=== PATIENT | male | born 1955 | race Caucasian/White ===

== ENCOUNTER 2019-12-20 22:22 | Inpatient (IN) | payer OTHER ==
[~2019-12-20] VITALS: Ht 172.7 cm; Wt 79.9 kg
[2019-12-20 23:47] VITALS: BP 144/92
--- NOTE | 2019-12-21 00:05 | NUR ---
Patient admitted to room 527B under the care of Dr. Skelton with the diagnosis of psychosis. Patient arrived by EMS from [facility]. Patient currently resides in a home independently. Affidavits received from [facility] stating that they were dispatched to patient's residence on a report that this patient was "gardening naked". reports that upon arrival, patient was "seated in a lawn chair in the front yard and he was naked. There were piles of dirty clothing, boxed and canned food, rotted food, and other household items surrounding the front". Patient reported to that he had previously been diagnosed with schizoaffective disorder and he was previously treated at [facility]. However, when patient arrived to this unit, he denies any mental health history. States that he will not and has never taken any medications. Patient had also reported to that he has a therapist named Shelton Pino at [facility]. Patient having disorganized, tangential speech at this time. Flight of ideas, soft/rapid speech. Denies pain or discomfort. Denies SI/HI. Patient denies any history of alcohol, drug or nicotine use. Drug screen and alcohol screen negative from ED. Patient states he has no known drug allergies. Patient denies any recent weight loss. States that he eats a regular diet at home with a good appetite. Patient states that he "should" be wearing a full set of dentures. Appears to be endentulous but would not comply with oral assessment. Patient also states that he "should" be wearing eye glasses but has no vision impairment. Patient alert and oriented x3. States that he is currently at the hospital due to a "big misunderstanding" with his neighbor. Patient hyperactive, dancing about the halls and unit with towels and blankets wrapped around his head, waist and torso. Patient argumentative at times. States that he does not have any family or friends to contact. Patient stated that he has a primary care doctor at "[facility] [address]" but he hasn't been there in several years. Patient did report medical history of "heart disease" but was unable to ellaborate further. Patient did report that he was sad and then started talking about a man, train, stroke, laundry. Patient having difficulty focusing. Suspicious of surroundings. Patient later observed hugging and whispering with another peer. Needed re-direction several times on respecting personal boundaries. Admission orders obtained from AMANDA Ballesteros. AMANDA Sheikh notified of admission for hospitalist service. Patient did sign consents for treatment. Nurse placed new ID band for this hospital on patient's wrist and took off old ID band. Patient stating that he is allergic to the new band and wanted it to be pinned to his gown. Stating that his wrist now hurts due to the allergic reaction, wants to file a complaint. Attempted to explain to patient that the bands are exactly the same but have a different doctor and ID number on it. Patient continues to fixate on this. Patient remains restless and grandiose at this time.
[2019-12-21 07:34] VITALS: BP 114/81
[2019-12-21 11:11] LABS: HEMATOCRIT 39.1 % (42.0-52.0); HEMOGLOBIN 13.5 gm/dL (14.0-18.0); MCH 31.6 pg (26.0-34.0); MCHC 34.5 g/dL (28.0-37.0); MCV 91.8 fL (80.0-100.0); RBC 4.26 mil/uL (4.50-6.00); RDW 13.3 % (10.5-14.5); WBC 3.3 thou/uL (4.0-11.0)
[2019-12-21 11:32] LABS: ALBUMIN 3.6 g/dL (3.4-5.0); CALCIUM 8.9 mg/dL (8.5-10.1); CREATININE 1.2 mg/dL (0.7-1.3); MAGNESIUM 1.9 mg/dL (1.8-2.4); POTASSIUM 4.7 mmol/L (3.5-5.1); TOTAL BILIRUBIN 0.5 mg/dL (<0.1-1.0); TOTAL PROTEIN 6.4 g/dL (6.4-8.2)
[2019-12-21 11:55] LABS: TSH 1.094 uIU/mL (0.358-3.740)
--- NOTE | 2019-12-21 17:25 | NUR ---
PATIENT APPROACHED NURSES AND ADVISED HE HAD [employer] TABLET - COAT AND SILVER RING AT EMERGENCY ROOM AT [facility]. STAFF CALLED FACILITY AND THEY ADVISED THAT PATIENT'S BELONGINGS ARE IN EMERGENCY ROOM. STAFF AT ER CLAIMS HAS NO WAY OF TRANSPORTING - CAN BE CONTACTED AT [phone] AND ASK FOR ER.
--- NOTE | 2019-12-21 18:20 | NUR ---
Pt. says he has ring and [employer] tablet missing in transfer over here. He is to contact [facility] tomorrow to get those things transported over here from prior facility. He ambulates with ease, is A and O x 4.
[2019-12-21 20:02] VITALS: BP 155/93
--- NOTE | 2019-12-22 01:53 | NUR ---
PATIENT HAS BEEN UP BEFORE BED TRYING TO ADVOCATE FOR OTHER PATIENT'S BY GOING TO THE STAFF WITH PATIENT'S REQUEST FOR CARE OR TELLING STAFF WHAT DIFFERENT PATIENT'S ARE DOING. HE IS A/0X3. HE AMBULATES. HE DENIES PAIN AND BELIEVES HE'S HERE TO HELP OTHERS BECAUSE HE DOESN'T NEED HELP ACCORDING TO HIM. PT REFUSED HIS 2100 SEROQUEL AND STATES THAT HE CAN'T TAKE THAT MED AND THAT MEDS JUST MAKE HIM WORSE. HE WAS IN BED AND WANTING TO GO TO BED. HE STATES HE WANTS TO TALK WITH THE DOCTOR BEFORE TAKING ANY MEDS. HE GOT UP AROUND 0030 AND CAME TO NURSE STATION WANTING TO TALK WITH NURSE KOURTNEY BECAUSE HE THINKS SHE KNOWS SOMEONE HE KNOWS. HE WAS TOLD TO GO BACK TO BED AND HE COULD TALK TO KOURTNEY IN THE MORNING BECAUSE SHE WAS AWAY FROM THE NURSE STATION AT THE TIME. PATIENT WENT BACK TO BED AND IS SLEEPING AT THIS POINT. CONTINUING TO MONITOR. DENIES SI/HI/AVH.
[2019-12-22 07:32] VITALS: BP 140/97
--- NOTE | 2019-12-22 08:58 | EKG ---
[facility] [place] [address] ELECTROCARDIOGRAM REPORT Name: SARAHI LOBATO Room #: [facility] ADM IN M.R.#: [id number] Admission: 12/20/19 Attend Phys: Jacques Skelton DO Discharge: Date of : 59 Report #: [id number] THIS REPORT FOR: cc: MARTHA - Gladys family physician/PCP MARTHA - Gladys family physician/PCP Renzo Polanco MD ~ THIS REPORT FOR: //name// [facility] Test Date: 2019-12-21 Test Time: 08:47:00 Pat Name: SARAHI LOBATO Department: Room: [facility] Gender: M Cnc Mill Set Up Operator: Wyatt MCGUIRE : 1955 Requested By: Yoandy Ramirez Order Number: [id number] MD: Renzo Polanco Measurements Intervals [place] Rate: 65 P: 64 [place]: 157 QRS: 27 QRSD: 103 T: 52 QT: 406 QTc: 423 Interpretive Statements Sinus rhythm Atrial premature complex Low voltage, extremity leads No previous ECG available for comparison Electronically Signed On 12-22-2019 8:56:43 CDT by Renzo Polanco [email or web address] <ELECTRONICALLY SIGNED> By: Renzo Polanco MD 12/22/19 0856 Renzo Polanco MD /EPI
--- NOTE | 2019-12-22 17:22 | NUR ---
ASSUMED CARE AT 0700 THIS MORNING. PTAman ELIZALDE NOT SET STILL TO EAT BREAKFAST. HE CONTINUALLY WANTS TO TAKE CARE OF OTHER PATIENTS. HE WOULD NOT SIT DOWN TO EAT. STAFF WAITED FOR HIM TO FINISH BREAKFAST, BUT HE DID NOT. STAFF EVENTUALLY PICKED UP HIS TRAY. HE CAME TO THIS NURSE STATED THAT I NEED TO INFORM THE FABRIC WORKER FITTER'S TO NOT CHEF ASSISTANT HIS TRAY BEFORE HE TOLD THEM THEY COULD. HE CALLED THIS RN INTO HIS ROOM AND SHOWED STAFF THAT A BIRD HAD LAYED EGGS IN FLOWER POTS ON THE ROOF. HE WAS CONCERNED THE BIRD COULD NOT ADEQUATELY TAKING CARE OF THE EGGS.
[2019-12-22 19:20] VITALS: BP 146/88
--- NOTE | 2019-12-23 00:24 | NUR ---
Assumed care of patient this pm shift. Patient in good spirits. Patient talks about connecting with the energies of the earth. Patient showed how palms are read. Patient calm and cooperative. Patient refused night time medications. Patient ambulatory. Patient denies pain. Patient denies hi/si. Patient asks if there are any positions available. Patients assessment shows clear breath sounds, active bowel sounds, and s1 s2 heard with auscultation. Patient is alert and oriented to person and time as well as place. Patient is having a hard time sleeping this evening. We will continue to monitor.
[2019-12-23 07:30] VITALS: BP 114/73
--- NOTE | 2019-12-23 13:59 | NUR ---
JOSEPH completed a SLUMS with patient. He scored 28/30. JOSEPH filed this in pt's chart. SW team will continue to follow pt during his stay on this unit.
--- NOTE | 2019-12-23 14:31 | NUR ---
PATIENT CARE ASSUMED T 0700 AM - PATIENT IN ROOM WHEN BREAKFAST SERVICED. ENTERED ROOM AND PATIENT MAKING ODD MOVEMENTS IN BED WHILE SUN SHINED ON HIM. CLAIMS RITUAL THAT AIDS HIM WITH FOCUS AND STRENGTH AND WOULD NOT UNDERSTAND. LATER FOUND IN HIS ROOM NAKED BY HOSPITALIST. CLAIMS WAS EXERCISING. PATIENT NEEDS REDIRECTION TO STAY FULLY CLOTHED. ALSO ADVISED NOT TO TOUCH OTHER PATIENTS SINCE HE PERFORMS SAME STRANGE RITUALS ON PEERS. REFUSING ANY MEDICATIONS - MISSED BREAKFAST. PATIENT HAD SLUMS EXAMINED PERFORMED THIS AFTERNOON. SCRATCHED LEFT SIDE OF CHEST - OVER CLAVICLE. CLAIMS YOGA HIGHER UP CONVEYED HIM TO DO SO. EXPLANATION TO BIZARRE TO COMPREHEND.
[2019-12-23 19:49] VITALS: BP 142/79
[2019-12-23 19:51] VITALS: BP 111/75
[2019-12-23 20:00] VITALS: BP 111/75
--- NOTE | 2019-12-24 04:55 | NUR ---
12-23-19 CARE TRANSFERED AT 1914; 1944 pt sitting on floor with eyes open. Pt AAOx2; skin w/d. Noted lated during medication admin pt sitting on floor with towel on head and moving hands in a bizarre way, pt reported this is a ritual to assist him with center his self. Pt had zero difficulties swallowing medication. Pt denies any pain or SI/SH/HI at this time. Please refer to nursing interventions for more information. Zero acute distress noted.
[2019-12-24 09:22] VITALS: BP 111/75
--- NOTE | 2019-12-24 09:30 | NUR ---
ASSUMED CARE AT 0700 THIS MORNING. PT. UP AND ON THE UNIT FOR BREAKFAST. HE CONTINUES TO MAKE VERY BIZZARE HAND MOTIONS CONTINUALLY THROUGHOUT BREAKFAST. 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 HE IS REDIRECTABLE FOR SHORT PERIODS OF TIME THEN RETURNS TO HIS "MANAGER VISUAL" ROLE.
[2019-12-24 19:35] VITALS: BP 144/88
[2019-12-24 20:20] VITALS: BP 144/88
--- NOTE | 2019-12-25 03:19 | NUR ---
12-24-19 TRANSFER CARE 1914. At start of shift noted pt in day room with doing bizarre movements. 2019 Pt cooperative and reposition from standing to sitting for assessment. Pt denies any pain and SI/SH/HI. During medication administration, pt became aggressive and grabbed water glass and gargled then spit water back in to cup, then took pills and plastic medication cup into mouth, pt spit medication cup back out, then reported he had to go to bathroom. Unsure if pt swallowed pills or cheeked. Pt continued to become more agitated and took off all his close and had a sheet loosly wrapped around his neck in a scarf fashion. When asked to please put pants on, pt reported he was doing his evening baptist routine; pt elevated his aggression and [address] Skelton and received orders are follows. Haldol 5 mg, 1 mg Ativan, 25 mg Bendryl, IM x1 stat (TORB DR GRAJEDA / BRETT RN noted 12-24-190 CW). Approximately 2199 security team arrived for stand by assist and IM shot delivered into left deltoid, security team did assist in keeping pt arms from swing around and pt reported again he is just doing his baptist routine. All bed linens removed from room. 230 Pt was calm and more cooperative and a sheet was given, RR 16 even and non-labored on RA; 0100 Pt right side lying with eyes closed, RR 16 even and non-labored on RA; 0300 Pt right side lying with eyes closed, arms wrapped around self and legs drawn up, noted goosebumps on skin, covered pt with clean fresh blanket. Zero acute distress noted.
[2019-12-25 07:30] VITALS: BP 121/86
--- NOTE | 2019-12-25 11:49 | NUR ---
Alert and orientated X4. States he wants to keep praying and exercising. Denies SI/HI. Interacting with staff and peers appropriately but does need reminders to not do yoga poses in day room. Breath sounds clear t/o. Reg HR ausculatated. Color pink with brisk capillary refill and palpable peripheral pulses. Independent with voiding. Active bowel sounds over soft, flat abdomen. Regular, steady gait. Requesting to shave after lunch.
--- NOTE | 2019-12-25 12:13 | NUR ---
JOSEPH contacted [facility] and scheduled an appt for pt with [facility] for January 06 @[address] Cordero. They will call the number pt gave of [phone]; this belongs to his sister in law. JOSEPH contacted Mr. Ernandez for assistance with pt. Mr. Ernandez says he cannot help pt because he is non-compliant with meds and does not have a hx of substance abuse. Due to COVID-19 his options are limited. SW team will continue to follow pt during his stay on this unit.
[2019-12-25 19:36] VITALS: BP 139/95
--- NOTE | 2019-12-26 01:18 | NUR ---
Assumed care of patient this pm shift. Patient is in good spirits. Patient denies pain. Patient denies hi/si. Patient occasionally sits in the hallway doing some kind of yoga. Patient refused medications this evening and requested the chemical makeup and atomic number which rn was not able to provide at this time. Patient is ambulatory and very intrusive. Patient gets in the business of others without prompting. Patient states that his urine and bowel needs to be checked immediately by the labratory but does not state which tests are needed. Patients assessment shows clear breath sounds, active bowel sounds, and s1 s2 heard with auscultation. We will continue to monitor.
[2019-12-26 08:35] VITALS: BP 118/94
[2019-12-26] MEDS ORDERED: QUETIAPINE FUM150 MG PO (09:13)
[2019-12-26 11:03] VITALS: BP 118/94
--- NOTE | 2019-12-26 11:15 | NUR ---
1015 Pt. lying in room appears to sleep with bottom sheet off bed and looped loosely around his neck 4-5 times. Awakened easily. Denies any attempt to harm himself after being asked several times. Expressing frustration about being asked about SI multiple times. Denies intent to harm himself or others. Also had top sheet on top of arm chair with each corner tied to chair leg. Alert and orientated X 4. Affect flat with little interaction but answering questions. Old scratches over chest, scabbed over. Breath sounds clear t/o. Reg HR auscultated. Color pink with brisk capillary refill and palpable peripheral pulses. No edema noted. Independent with voiding. Active bowel sounds over soft, flat abdomen. States he talked to doctor this AM and he is ready to go home. 1115 Attempted to give discharge instructions but he refused to listen repeatedly getting out of WC. Asked what "NOS" meant r/t psychosis. Prescription given, states he is not on any medication. Concerned about silver candle dukes in belongings. Refused to sign discharge instructions stating that was his right by law. Asked again about SI and he adamantly refused. When asked what he would do if he did feel like harming himself he stated that he would exercise. When asked if he had hotline number to call he was ambivalent. JOSEPH Maharaj stated she had given him the number. Carol Ann escorted him in WC to ER entrance and placed him in taxi.
--- NOTE | 2019-12-28 12:19 | D ---
[facility] [place] [address] [place] [address] DISCHARGE SUMMARY Name: SARAHI LOBATO Room #: 527B-B DIS IN M.R.#: [id number] Admission: 12/20/19 Attend Phys: Jacques Skelton DO Discharge: 12/26/19 Date of : 59 Report #: [id number] THIS REPORT FOR: cc: MARTHA - No family physician/PCP FAM - No family physician/PCP Jacques Skelton DO ~ THIS REPORT FOR: //name// CC: Jacques THOMAS physician/PCP DATE OF SERVICE: 12/26/2019 INPATIENT PSYCHIATRIC DISCHARGE SUMMARY ATTENDING PHYSICIAN: Jacques Skelton DO. GUARD CHIEF AT THE TIME OF DISCHARGE: Ada Sam MD DISCHARGE DIAGNOSES: Schizophrenia, still decompensated due to patient opposition to treatment, poor compliance. Medical comorbidities include largely none found after hospitalist exam. DISCHARGE PLAN: The patient is discharging to, he states, a friend's place. We are taxing him to [facility] where his belongings are. Regular diet. Activity level as tolerated. No alcohol, no illicit drugs. Only prescription I am giving is 30-day supply of Seroquel XR 300 mg. The patient states he will not take this, however. It should be noted during hospitalization, the patient was offered conversion of an antipsychotic regimen to a long-acting injection, which he declined. The patient should avoid alcohol or illicit drugs. States he is a nonsmoker currently. REASON FOR ADMISSION: A 64-year-old male transferred from [facility] for bizarre behavior on 12/20/2019. Apparently, the patient was outside his house, found there by police, naked, gardening. He claimed it was too hot and was trying to cool down. Also, reported a history of schizoaffective disorder, had been receiving services at [facility]. HOSPITAL COURSE: The patient was admitted to the Geriatric Psychiatry Unit. Records were obtained from [facility]. They included clinic notes from the [facility] clinic from 05/2019 through 09/2019. By the end of 06/2019, the patient had discontinued routinely taking Navane, had not tolerated a cross titration to Risperdal either. At that time, the patient's providers and director of casework were concerned about him and their ongoing monthly or so clinic visits reflected that. During hospitalization, the patient would have bizarre stereotypy [facility] [address] [place] [address] DISCHARGE SUMMARY Name: CHERYLESARAHI JULIENNE Room #: 527B-B DIS IN M.R.#: [id number] Admission: 12/20/19 Attend Phys: Jacques Skelton DO Discharge: 12/26/19 Date of : 59 Report #: [id number] movements, moving his arms around at times, performing yoga like maneuvers, being able to stand on one leg, etc. He was typically intrusive in other patient's affairs, had to be redirected multiple times, was not assaultive, not injurious. On the day of discharge, there was an incident of some concern where he had tied the sheet as a chair and appeared to maybe put it around his neck. When I questioned him about this, he reported this was a move he did in Judo. From the patient's records, he does not have significant history of suicidality, I can recall. He is future oriented and I do not believe this was an actual attempt against his life. However, I did review the incident with the patient and with the nurse witnessed. On the day of discharge, the patient was in stable condition. The patient was refusing most aftercare offered. He was advised to go to the [facility] or [facility]. PHYSICAL EXAMINATION: VITAL SIGNS: Temperature 36.6, pulse 72, respirations 18, BP 118/94, O2 sat 97%. MUSCULOSKELETAL: Abnormal movements that are not indicative of tardive dyskinesia. Normal gait and station. MENTAL STATUS EXAMINATION: This is a well-developed, appropriate ____ male with kearns hair, unkempt at times. Attention fair. Concentration fair. Speech is normal in rate, volume and tone. Thought Process: Linear and goal directed. Thought Content: Focused on discharge, getting a job, doing things such as this. Mood and affect were congruent, generally euthymic. Denied SI or HI. Denied hopelessness, helplessness. No auditory, visual, or tactile hallucinations at the time of discharge. Insight impaired. Judgment limited. Fund of knowledge above average range. Prognosis for this patient is guarded to poor due to noncompliance with medication regimen, failure to wanting to engage in [facility] services. The patient was warned of the high risk of dementia with continued noncompliance with antipsychotic medications. However, given all this, the patient did not meet involuntary criteria and was not making therapy to progress on the unit. ADDENDUM Remainder of laboratory work done in the house, much of the other labs was done at [facility]. Hematology for this admission on 12/21/2019, H and H 13.5 and 39.1, slightly low. White cell count 3.3, again slightly low. Platelet count normal 159,000. Chemistry: Sodium 143, potassium 4.7, chloride 108, bicarbonate 27, BUN 28, creatinine 1.2, estimated GFR is 61, glucose 95, calcium 8.9, magnesium 1.9, total bilirubin 0.5, AST 27, ALT 21, alkaline phosphatase 73, total protein 6.4, albumin 3.6. B12 low at 396, treatment [facility] [address] [place] [address] DISCHARGE SUMMARY Name: CHERYLESARAHI Room #: 527B-B DIS IN M.R.#: [id number] Admission: 12/20/19 Attend Phys: Jacques Skelton DO Discharge: 12/26/19 Date of : 59 Report #: [id number] deferred on that. TSH normal at 1.094. No other laboratories obtained in this admission and weight at time of discharge is 79.878 kilos. <ELECTRONICALLY SIGNED> By: Jacques Skelton DO 12/28/19 1219 1905 1936 Jacques Skelton DO /nt
== END 2019-12-26 11:13 | disposition home or self-care (01) | DRG 885 ==
LOC: SBH
PROVIDERS: Internal Medicine; ADMIT Psychiatry & Neurology Psychiatry
DX: F25.9 Schizoaffective disorder, unspecified (principal); Z91.14 Patient's other noncompliance with medication regimen
CPT/HCPCS: 10880

== ENCOUNTER 2019-12-29 03:45 | Inpatient (IN) | payer OTHER ==
[~2019-12-29] VITALS: Ht 185.4 cm; Wt 81.2 kg
[~2019-12-29 03:45] MED LIST: QUETIAPINE FUM150 MG PO
[2019-12-29 03:47] VITALS: BP 149/90
[2019-12-29 04:17] LABS: ABSOLUTE NEUTROPHILS 3.3 thou/uL (1.4-8.2); BASOPHILS 1.1 % (0.0-2.0); EOSINOPHILS 2.9 % (0.0-3.0); HEMATOCRIT 41.3 % (42.0-52.0); HEMOGLOBIN 14.2 gm/dL (14.0-18.0); LYMPHOCYTES 26.3 % (24.0-44.0); MCH 31.5 pg (26.0-34.0); MCHC 34.4 g/dL (28.0-37.0); MCV 91.6 fL (80.0-100.0); MONOCYTES 10.5 % (1.0-8.0); PLATELET COUNT 194 thou/uL (150-400); POLYS 59.2 % (36.0-66.0); RBC 4.51 mil/uL (4.50-6.00); RDW 13.1 % (10.5-14.5); WBC 5.5 thou/uL (4.0-11.0)
[2019-12-29 04:27] LABS: CALCIUM 9.4 mg/dL (8.5-10.1); CREATININE 1.1 mg/dL (0.7-1.3); POTASSIUM 3.7 mmol/L (3.5-5.1)
[2019-12-29 04:33] LABS: ALBUMIN 4.4 g/dL (3.4-5.0); TOTAL BILIRUBIN 0.8 mg/dL (<0.1-1.0); TOTAL PROTEIN 7.6 g/dL (6.4-8.2)
[2019-12-29 04:47] LABS: URINE BILIRUBIN NEGATIVE (Negative); URINE BLOOD TRACE (Negative); URINE CLARITY CLEAR; URINE COLOR YELLOW; URINE GLUCOSE-RANDOM* NEGATIVE (Negative); URINE KETONES TRACE (Negative); URINE LEUKOCYTES-REFLEX NEGATIVE (Negative); URINE NITRITE-REFLEX NEGATIVE (Negative); URINE PROTEIN (DIPSTICK) NEGATIVE (Negative); URINE SPECIFIC GRAVITY 1.025 (1.005-1.035); URINE UROBILINOGEN 0.2 E.U./dl (0.2-1.0)
[2019-12-29 04:58] LABS: AMP/METHAMP Negative (Negative); BARBITURATES Negative (Negative); BENZODIAZEPINES Negative (Negative); COCAINE Negative (Negative); METHADONE Negative (Negative); OPIATES Negative (Negative); PCP Negative (Negative)
--- NOTE | 2019-12-29 05:17 | NUR ---
Pt changed to room 7 due to pt not sitting still, walking around in room and taking supplies out of place. Playing with water,getting napkins wet. Security still next to patient's room. Charge nurse Harriet and this nurse went through his belongings to discard any weapons and put belongings in bags and in a cabinet outside his room
--- NOTE | 2019-12-29 08:44 | EKG ---
[facility] [place] [address] ELECTROCARDIOGRAM REPORT Name: SARAHI LOBATO Room #: 170-7 ADM IN M.R.#: [id number] Admission: 12/29/19 Attend Phys: Jacques Skelton DO Discharge: Date of : 59 Report #: [id number] THIS REPORT FOR: cc: MARTHA - Gladys family physician/PCP MARTHA - No family physician/PCP Benny Elder MD [facility] THIS REPORT FOR: //name// [facility] ED Test Date: 2019-12-29 Test Time: 04:02:40 Pat Name: SARAHI LOBATO Department: Room: [facility] Gender: M Account Liaison: STOLEDAndres : 1955 Requested By: Sam Sy Order Number: [id number] MD: Benny Elder Measurements Intervals [place] Rate: 69 P: 50 [place]: 137 QRS: 8 QRSD: 118 T: 44 QT: 467 QTc: 501 Interpretive Statements Sinus rhythm ventricular premature complexes Compared to ECG 12/21/2019 08:47:00 Ventricular premature complex(es) now present Electronically Signed On 12-29-2019 8:42:40 CDT by Benny Elder [email or web address] <ELECTRONICALLY SIGNED> By: Benny Elder MD, [facility] 12/29/19 0842 1 1 Benny Elder MD, [facility] /EPI
[2019-12-29 09:15] VITALS: BP 169/82
[2019-12-29 09:51] VITALS: BP 129/76
--- NOTE | 2019-12-29 11:16 | NUR ---
1000 NEW ADMIT HERE TRANSFERRED FROM ER, PATIENT IS HOMELESS AND WAS JUST DISCHARGED ON 12/26/19 FROM [facility]. PATIENT HAS HAD SOME BIZZARE BEHAVIORS SEEING CHILDREN TYIED UP AT HOME. PATIENT IN THE ER WAS ASKING TO GIVE HIM BLOOD TO DRINK FROM LAB TUBES. MAKING GLUTURAL SOUNDS THREATENING NURSES AND STAFF IN ER. PATIENT HAS NOT BEEN MED COMPLIANT AND WAS GIVEN HALDOL 5 MG IN ER TO HELP PATIENT CALM DOWN. UPON ARRIVING ON UNIT PATIENT SOMEWHAT SEDATED. HE IS COOPERATIVE AND RESTING QUIETLY IN ROOM WILL CONTINUE TO MONITOR PATIENT FOR BEHAVIORS AND SAFETY.
[2019-12-29 19:34] VITALS: BP 132/75
--- NOTE | 2019-12-29 22:25 | NUR ---
Care assumed of patient at 1915: Patient resting in bed at start of shift. Easily aroused. Hyperverbal, rambling, disorganized speech. Alert and oriented x4. Denies pain or discomfort. Denies SI/HI/AH/VH. However, patient pointing spontaneously to the purvis, window and bed. Unable to differentiate what patient was talking about. Patient dirty in hospital clothing. Offered to assist patient with showering, patient stated he just took a bath. Patient impulsive, disrespecting personal boundaries of staff and peers. Patient has linens wrapped around waist and arms as if it were a dress. Patient declined HS snack. No medication prescribed this evening. Patient up and pacing the halls x2 since start of shift but has been fairly calm compared to behavior displayed in the ED this AM.
[2019-12-30 08:00] VITALS: BP 121/85
--- NOTE | 2019-12-30 08:49 | NUR ---
PT IN DINING ROOM FINISHED BREAKFAST. PT TOOK MED WITHOUT ANY ISSUSES. PT NOT HAVING ANY BIZZARE BEHAVIOR AT THIS TIME.
--- NOTE | 2019-12-30 10:00 | NUR ---
PT IN BATHROOM AND COMPLAINED OF HAVING LOOSE STOOL. HE SAID AFTER BREAKFAST HE HAD STOOL.
--- NOTE | 2019-12-30 17:59 | NUR ---
PT STATED THE ONLY STOOL WAS AN HOUR AFTER BREAKFAST. PT REQUESTING TO HAVE A LOMOTIL AT THIS TIME AFTER DINNER. PT TOOK HALDOL MEDICATION WITHOUT ANY ISSUES. STILL NO BIZZARE BEHAVIOR AT THIS TIME.
--- NOTE | 2019-12-30 18:36 | NUR ---
ADM IMMODIUM 15ML PO PER PT REQUEST.
[2019-12-30 19:47] VITALS: BP 124/81
--- NOTE | 2019-12-30 22:12 | H ---
[facility] [place] [address] HISTORY AND PHYSICAL Name: SARAIH LOBATO Room #: 526A-A ADM IN M.R.#: [id number] Admission: 12/29/19 Attend Phys: Jacques Skelton DO Discharge: Date of : 59 Report #: [id number] THIS REPORT FOR: cc: MARTHA - No family physician/PCP FAM - No family physician/PCP Jacques Skelton DO ~ CC: Jacques THOMAS physician/PCP DATE OF SERVICE: 12/29/2019 INPATIENT PSYCHIATRIC EVALUATION. ATTENDING PHYSICIAN: Jacques Skelton DO. REFERRAL SPECIALIST: Matt Moore MD REASON FOR ADMISSION: Psychosis. CHIEF COMPLAINT: Unspecified. HISTORY OF PRESENT ILLNESS: This is a 64-year-old male apparently single, known to me from recent previous admission in December. His date of discharge unfortunately was 12/26/2019, so he barely lasted outside of the hospital a full weekend. The patient had been discharged at his request to [facility] to get belongings. Information is rather scant on what brought him back to the hospital but apparently, he was brought by ambulance. The best documentation I have from 3:47 a.m. this morning, authorities were called to the scene by patient, picked up at 11,000 [address], found in chair and brought in by family to take care of rituals and cleanout animal carcasses in-house. When asked if he was suicidal or homicidal, patient states "yes". He was told to go in-house and clean out the people and carcasses and animals. "He was told how to draw blood and states he needs to mix it and drink it..." This sort of bizarre ideations was typical of his previous admission. There were other oddities. The patient was found to be extremely dirty, paranoid, impulsive. He took off all vital signs devices in the late morning in the ER, got naked, given water to produce urine. The patient reports that it is like giving . The patient kneeled in bed and make guttural noises until he was able to produce urine. He put hospital gown back on and was walking around inside room, making guttural noises, security at the patient's door. The patient was up in room and sink water running, cabinets are saturated. The patient escorted to room, garage door down. The patient received 20 mg of Geodon last night and 5 mg of Haldol, 2 mg of Ativan this morning. At around 7:15, he was pacing, staining the door and would not sit back in bed and was [address] [address] HISTORY AND PHYSICAL Name: CHERYLESARAHI JULIENNE Room #: 526A-A [facility] IN M.R.#: [id number] Admission: 12/29/19 Attend Phys: Jacques Skelton DO Discharge: Date of : 59 Report #: [id number] making aggressive statements to the sitter. Security arrived and he was given a second injection. He also stated in the ER, he was brought there to remove the corpses and stuff. He states that he had some nightmares that their children tied up with duct tape. Denies alcohol and drug use. No fevers. Reported he just performed an exorcism, apparently refused to allow EMS to call the ED ahead in time en route. PAST MEDICAL HISTORY: Heart disease. Denies further. MEDICATIONS: He is on 300 mg of Seroquel XR but I do not believe he was taking it. ALLERGIES: PENICILLIN, SULFA. Weight 61.24 kilos. LABORATORY STUDIES: Sodium 145, potassium 3.7, chloride 108, bicarbonate 25, anion gap 12, BUN 33, creatinine 1.1, estimated GFR 68, glucose 126, calcium 9.4. Total bilirubin 0.8, AST 80, ALT 52, alkaline phosphatase 78, total protein 7.6, albumin 4.4. White count 5.5, hemoglobin 14.2, hematocrit 41.3, platelet count 194. Urine drug screen was negative. Trace ketones, trace blood. It looks like EKG was performed. QTC 501, QT 467, NV interval 137, rate 69, sinus rhythm, ventricular premature complexes were now present read by Dr. Elder. PHYSICAL EXAMINATION: VITAL SIGNS: Today, temperature 36.2, pulse 88, respirations 24, BP 129/76, O2 sat 99%. MUSCULOSKELETAL: Normal gait and station. MENTAL STATUS EXAMINATION: This is a well-developed, disheveled male appearing of stated age. Attention limited. Concentration limited. Speech is normal rate. Thought process is linear and goal directed. Thought content focused on no specific thing. The patient is a grossly poor historian. No psychomotor agitation, some psychomotor retardation when I saw him recently, received IM injection. Denied SI or HI. Denied hopelessness, helplessness. Memory not formally tested. Denied auditory, visual, or tactile hallucinations. Insight limited. Judgment limited. Fund of knowledge rather no greater than average. FORMULATION: A 64-year-old male recently discharged on Sunday of last week from [facility], now readmitted for pronounced psychosis. The patient will be a 96-hour involuntary admission. DIAGNOSIS: Schizophrenia. [facility] [address] [place] [address] HISTORY AND PHYSICAL Name: SARAHI LOBATO Room #: 526A-A ADM IN ..#: [id number] Admission: 12/29/19 Attend Phys: Jacques Skelton DO Discharge: Date of : 59 Report #: [id number] SECONDARY DIAGNOSIS: Based on physical from last time. Also laboratories were obtained last admission included TSH 1.094. Vitamin B12 level 396. Magnesium was 1.9 on 12/21/2019. No other medical problems. PLAN: Evaluate, stabilize, obtain collateral. Start Haldol 5 mg p.o. twice per day oral with IM backup 5 mg if refuses. We will need to explore further his family living situation than we did last time. I believe, he has a brother or sister still living, not sure their awareness of his situation. Time spent on interview, discussion with Emergency Room staff, review of records, coordination of care is approximately 60 minutes. PROTECTIVE FACTORS: Relatively young age. WEAKNESSES: Poor compliance, persistent mental illness. <ELECTRONICALLY SIGNED> By: Jacques Skelton DO 12/30/19 2212 [id number] Jacques Skelton DO /nt
--- NOTE | 2019-12-31 00:14 | NUR ---
Assumed care of patient this pm shift. Patient in good spirits, calm and cooperative. Patient denies hi/si. Patient denies pain. Patient was curious why he is now on haldol instead of seroquel. RN directed patient to talk with MD to better understand the medication change. Patient is ambulatory, continent of bowel and bladder. Patient takes medications whole. Patients assessment shows clear breath sounds, active bowel sounds, and s1 s2 heard with auscultation. We will continue to monitor.
[2019-12-31 07:50] VITALS: BP 136/92
[2019-12-31 08:42] VITALS: BP 136/92
--- NOTE | 2019-12-31 08:58 | NUR ---
ASSUMED CARE AT 0700 THIS MORNING. PT. WALKING AROUND WITH A BLANKET AROUND HIS SHOULDERS. HE VERBALIZED CONCERN ABOUT WHAT MAY OF CAUSED HIS DIARRHEA YESTERDAY. HE VERBALIZED HE THOUGHT IT MAY BE THE HALDOL. I INFORMED HIM I DID NOT THINK THAT WAS CORRECT, BUT I WOULD INFORM THE DRAman OF THIS INFORMATION AND CONCERN. HE CONTINUES TO MAKE STRANGE GESTURES AND VERBAL COMMENTS. SHE DID TAKE HIS MEDICATIONS WITHOUT PROBLEMS NOTED.
--- NOTE | 2019-12-31 12:37 | NUR ---
Dr. Skeltno and JOSEPH met with pt in the doctor's office, and contacted pt's brother and sister in law Bob and Angelica. Angelica was unaware of much of his actions due to her not being able to contact pt when she calls him; she only hears from him when he is in need. She said that when she picked pt up after his last d/c from [facility] he was barefoot and walking a long distance. She was told by pt that he was sent without shoes. JOSEPH explained that was not true and that she sent pt by [employer] to [facility] because he insisted on getting his belongings. She said that she picked him up much later than that. She corroborated that pt does live in [facility]; however, Bob said his friend is pt's landlord and does not want pt moving back until he is medicated. Dr. Skelton explained that pt needs placement for at least 6 months to consistently become medicated. Pt did not like the conversation about guardianship so he chose to leave the office. Bob said that he is very much interested in obtaining guardianship and would like to start on that right away. JOSEPH explained how she could assist in this process. He gave the email of [email or web address] to correspond with him about guardianship. JOSEPH sent an email to César so that he and his senior business architect can have her contact information. JOSEPH team will continue to follow pt during her stay on this unit.
--- NOTE | 2019-12-31 12:57 | EKG ---
[facility] [place] [address] ELECTROCARDIOGRAM REPORT Name: SARAHI LOBATO Room #: 52-A ADM IN M.R.#: [id number] Admission: 12/29/19 Attend Phys: Jacques Skelton DO Discharge: Date of : 59 Report #: [id number] THIS REPORT FOR: cc: FAM - No family physician/PCP FAM - No family physician/PCP Renzo Polanco MD ~ THIS REPORT FOR: //name// [facility] Test Date: 2019-12-31 Test Time: 09:28:18 Pat Name: SARAHI LOBATO Department: Room: 52 A Gender: M Post Graduate Internship: ANTHONY : 1955 Requested By: Jacques Skelton Order Number: [id number] MD: Renzo Polanco Measurements Intervals Valmy Rate: 56 P: 29 WA: 169 QRS: 21 QRSD: 94 T: 46 QT: 411 QTc: 397 Interpretive Statements Sinus rhythm Atrial premature complex Low voltage, extremity leads Consider RVH or posterior infarct Compared to ECG 12/29/2019 04:02:40 Atrial premature complex(es) now present Low QRS voltage now present Myocardial infarct finding now present Ventricular premature complex(es) no longer present Electronically Signed On 12-31-2019 12:55:15 CDT by Renzo Polanco [email or web address] <ELECTRONICALLY SIGNED> By: Renzo Polanco MD 12/31/19 1255 7 7 Renzo Polanco MD /EPI
[2019-12-31 19:39] VITALS: BP 122/80
[2019-12-31 20:37] VITALS: BP 122/80
--- NOTE | 2020-01-01 01:46 | NUR ---
Assumed care of patient this pm shift. Patient in good spirits sitting in the mileu. Patients affect is flat. Patient takes medications whole. Patient ambulates without assistance. Patient requested a sleeping pill. Patient calm and cooperative with rn. Patients assessment shows clear breath sounds, active bowel sounds, and s1 s2 heard with auscultation. Patient is continent of bowel and bladder. Patient did not display any aggressive behaviors. Patient denies pain. Patient denies hi/si. Patient did not state any goals for this evening. We will continue to monitor.
[2020-01-01 07:38] VITALS: BP 127/85
--- NOTE | 2020-01-01 15:15 | NUR ---
SPEECH MUMBLED AND DIFFICULT TO UMDERSTAND THIS AM DURING 1. VISIBLE IN DAYRROM WITH PEERS AND DOES APPEAR TO BE SOCIAL AND INTERACTIVE.RELUCTANT TO TAKLE AM MEDICATION STATING DOSE WAS "TOO HIGH-I DIDN'T TAKE THAT MUCH YESTERDAY" DID COMPLY AFTER VERIFYING DOSE INCREASE FROM 12/30. GAIT STEADY WITHOUT ASSISTIVE DEVICES. CONVERSATION RAMBLING/CIRCUMSTANTIAL-NO NOTED OR REPORTED A/V HALLUCINATIONS OR OVERT DELUSIONAL STATEMENTS DURING 1. DOES REPORT "ALL OVER" PAIN RATED A 6 ON 1-10 SCALE . TYLENOL 650MG GIVEN PO PRN AT 1045 WITH VERBALIZED DECREASE PAIN TO 3 OR 4. APPETITE GOOD. SOME OPPOSITIONAL TYPE BEHAVIORS RE UNIT RULES WHEN ASKED TO NOT ENTER DAYROOM WITHOUT YELLOW SLIPPERS STATES "IF YOU CALL SOMEONE TO TRIM MY NAILS I WILL WEAR THEM"
[2020-01-01 19:42] VITALS: BP 148/98
--- NOTE | 2020-01-02 03:13 | NUR ---
Pt. alert and oriented throughout the shift. He did rest quietly during the night when checked on during frequent rounds. Cooperative with cares. Up ad coral in his room and steady on his feet. Offers no c/o pain.
[2020-01-02 07:00] VITALS: BP 136/86
--- NOTE | 2020-01-02 16:35 | NUR ---
COOPERATIVE AND PLEASANT-SIGNED VOLANTARY ADMIT FORM. DOES REPORT LEFT SHOULDER PAIN RATED A 7 ON 1-10 SCALE-TYLEONOL 650MG PO PRN WITH VERBALIZED FAIR RELIEF-PAIN DECREASED TO 5-NEW ORDER FOR VOLTERAN GEL-APPLIED TOPICALLY TO LEFT SHOULDER AT APPROX 1230. GAIT STEADY. NIKKI SI/SH/.HI. CONVERSATION AT TIMES RAMBLING/CIRCUMSTANTIAL BUT NO ACUTE PSYCHOSIS-A/V HALLUCINATIONS REPORTED OR NOTED DURING 1;1
[2020-01-02 19:51] VITALS: BP 131/91
--- NOTE | 2020-01-02 21:38 | NUR ---
Care of patient assumed at 1915. Patient is in the day room talking with peers. Pleasant and cooperative with assessment. Denies SI/HI as well as hallucinations. Loose associations. Somewhat grandiose in content. A/O x 4. Endorses left shoulder pain rating it a 12 on 0-10 scale, though he exhibits no overt signs of pain. In describing pain, he indicates that it is along the inner edge of left scapula, probably luscle related. Accepts APAP with HS meds. When reassessed, rates pain at 6/10. Lies down shortly after getting meds.
[2020-01-03 09:19] VITALS: BP 111/73
--- NOTE | 2020-01-03 10:00 | NUR ---
ssumed care 0700. Ate breakfast, med compliant. Denies SI/HI/AH/VH. Mentioned how he got tothis unit: While in ER he reports staff would not clean nd bandage cut on foot so he got up to area sink, lifted foot up and proceeded cleaning it in the sink then saw adjacent antibiotic ointment and bandage and put them on foot. He was taken to some quiet area and was transferred to [facility]. He does not comprehend the inappropriateness of his actions. Conversant with peers.
[2020-01-03 19:17] VITALS: BP 124/89
--- NOTE | 2020-01-04 03:53 | NUR ---
01-03-20 CARE TRANSFERED AT 1915; 1945 PT AAOX2 STANDING IN DAY ROOM, CALM AND COOPERATIVE DURING NURSING ASSESMENT. PT REPORTED HAVING A BM TODAY. PT DENIES SI/SH/HI/VAH. PT REPORTS SHOULDER PAIN IN FIRST STATED LEFT THEN CORRECTED AND STATED BOTH SHOULDER HURTS AND RATES PAIN AT 5 ON O-10 SCALE. PT HAD ZERO DIFFICULTIES DURING MEDICATION ADMIN. REACCESSED PAIN AND PT SCORED SHOULDER PAIN AT A 3 ON 0-10 SCALE. PLEASE REFER TO NURSING INTERVENTIONS FOR MORE INFORMATION. ZERO ACUTE DISTRESS NOTED DURING NURSING ROUNDS.
[2020-01-04 10:45] VITALS: BP 121/82
--- NOTE | 2020-01-04 11:54 | NUR ---
Weekly RT Note Date of Admission: 12/29/2019 Date of Activity Therapy Assessment:12/30/2019 Activity Goal:Impulse Control Initial Goal:1:1, engagement in the milieu Weekly progress towards goal: Did not achieve Group participation level: NA due to COVID 19 Behaviors observed: Pt participated in two 1:1 sessions with RT, throughout this week. Pt seems to enjoy music and socializing with his peers and staff. Pt is often worried about other pts and often inserts himself into conversations and tells staff what he thinks needs to be done. Plan: No change towards goal
--- NOTE | 2020-01-04 16:38 | NUR ---
JOSPEH completed 1:1 with patient in lieu of group due to COVID-19 restrictions. Patient was engaged but displayed some confusion. His conversation was primarily focused on SW's hands and some sort of palmistry.
[2020-01-04 19:51] VITALS: BP 129/73
--- NOTE | 2020-01-05 06:14 | NUR ---
5-17-20 CARE TRANSFERED AT 1915; 1999 PT AAOX3, CALM COOPERATIVE. OF NOTE, PLEASE REFER TO NURSING INTERVENTIONS FOR MORE INFORMATION. ZERO ACUTE NOTED DURING NURSING ROUNDS.
[2020-01-05 09:20] VITALS: BP 124/82
--- NOTE | 2020-01-05 15:29 | NUR ---
Assumed patient care around 7am. patient alert and cooperative with some anxiety. walking in the hallway with steady gait. compained of pain in neck, pain medication given and worked. health assessment without abnormalities other than previously noted. resting in bed, with eyes closed, chest up and down. will keep monitoring.
[2020-01-05 19:35] VITALS: BP 127/90
--- NOTE | 2020-01-06 06:18 | NUR ---
01-05-20 care transfered at 1915; 1950 pt aaox3, calm and cooperative through out shift. of note, please refer to nursing interventions for more information. zero acute distress noted throughout shift.
[2020-01-06 07:51] VITALS: BP 127/50
--- NOTE | 2020-01-06 12:40 | NUR ---
Up ambulating in halls, conversing with peers and staff. Alert and orientated X4. Denies SI/HI. Concerned about missing notebook, looked in locker and it was not there. Gait regular and steady. Breath sounds clear t/o. Reg HR auscultated. Color pink with brisk capillary refill and palpable peripheral pulses. No edema noted. Independent with voiding. Active bowel sounds over soft, flat abdomen. At approximately 1100 I was approached by RT who stated pt stated he was suicidal d/t security not taking a police report d/t his missing notebook. When I spoke with pt he stated he was not suicidal but that he was fed up with this place. While I was talking to pt RT came and stated that she had found notebook in another pts room and that she would get it after lunch when peer was distracted. Pt. happy, no s/o distress.
--- NOTE | 2020-01-06 15:25 | NUR ---
JOSEPH spoke with Angelica about options for pt and if Bob has identified any. She said they have been looking, but nothing seems to match what is needed for pt. JOSEPH said she can send out referrals and see who is interested. JOSEPH noticed pt did not have Medicaid yet so she asked [facility] to screen pt; pt had Medicaid at some point but failed to follow-up with paperwork. JOSEPH sent referrals for pt to [facility]ita Roland, [facility] Orta, and [facility] on pt's behalf. JOSEPH team will contineu to follow pt during his stay on this unit.
[2020-01-06 19:41] VITALS: BP 112/72
--- NOTE | 2020-01-06 20:08 | NUR ---
Assumed care of patient at change of shift. He was sitting in a recliner in day room watching TV and conversing with peers. His affect was flat and he was talking in a whisper. He occasionally had eyes at half-mast. He denies pain and no signs or symptoms of pain or distress noted.
[2020-01-06 22:49] VITALS: BP 112/72
--- NOTE | 2020-01-07 00:37 | NUR ---
Pt. was awaken at approximately 12 midnight and refused to have pain ointment applied to neck. He sharee pain and has no signs or symptoms of pain or distress are noted. Prior to waking patient up he was resting quietly with eyes closed. Respirations even and non-labored.
--- NOTE | 2020-01-07 05:22 | NUR ---
Pt refused 0600 Diflecnac ointment to neck. He states that he "doesn"t need it right now. I explained that the ointment was to help with pain and I encouraged him to take it. He still refused. Pt. up is ambulating in hallways with a slow and steady gait. He denies SI/HI/AH/VH. He is interacting with peers calmly and cooperatively. He offers no complaints and no signs or symptoms of pain or distress noted.
[2020-01-07 05:41] LABS: HEMATOCRIT 39.3 % (42.0-52.0); HEMOGLOBIN 13.7 gm/dL (14.0-18.0); MCH 31.8 pg (26.0-34.0); MCHC 34.9 g/dL (28.0-37.0); RBC 4.31 mil/uL (4.50-6.00); RDW 13.3 % (10.5-14.5); WBC 4.7 thou/uL (4.0-11.0)
[2020-01-07 06:00] LABS: CALCIUM 8.7 mg/dL (8.5-10.1); CREATININE 1.5 mg/dL (0.7-1.3); POTASSIUM 4.3 mmol/L (3.5-5.1)
[2020-01-07 09:41] VITALS: BP 109/67
--- NOTE | 2020-01-07 14:21 | NUR ---
Nutrition: pt admitted with schizophrenia, psychosis to [facility] unit. Seen for LOS. Pt with previous request for double portions of entree items. States he was vegetarian for a while and lost a lot of "subcutaneous fat" Appears well nourished but muscle loss in bicep area noted. Pt is unsure of UBW. Current 178# and up 2# from admit. Pt is eating very well 100% of meals but voices he wants more. Obtained further food preferences and will offer ensure enlive daily, continue double portions of entree foods. Low risk.
[2020-01-07 20:00] VITALS: BP 107/65
[2020-01-07 22:00] VITALS: BP 107/65
--- NOTE | 2020-01-07 23:44 | NUR ---
Assumed care of patient this pm shift. Patient in his room resting. Patient in good spirits. Calm and cooperative. Patient wearing hospital attire and jeans. Patient takes medications whole. Patient ambulates with a steady gate without assistance. Patients assessment shows clear breath sounds, active bowel sounds, and s1 s2 heard with auscultation. Patient continent of bowel and bladder. We will continue to monitor per protocol.
--- NOTE | 2020-01-07 23:47 | NUR ---
Patient denies hi/si. Patient denies pain.
[2020-01-08 07:56] VITALS: BP 121/81
--- NOTE | 2020-01-08 10:42 | NUR ---
Up ambulating in unit without s/o distress. Regular, steady gait. Alert and orientated X4, denies SI/HI. Conversing with peers and staff. States he has pain in various parts of his body but mostly L forehead, rates it an 8, tyleol given, decreased to a 3. States he has several concerns he wants to discuss with Dr. Skelton. States his goal today is to be peaceful and rest. Cooperative and compliant with meds. Breath sounds clear t/o. Reg HR auscultated. Color pink with brisk capillary refill and palpable peripheral pulses. Independent with voiding. States he had a BM yesterday. Active bowel sounds over soft, flat abdomen. Participating in group this AM.
--- NOTE | 2020-01-08 11:15 | NUR ---
JOSEPH contacted De[facility]ra Davey, Carlita Roland, and Lele Chacon to follow-up on pts referrals. JOSEPH did not receive answers from any; Anne-Marie with [facility] said she would call JOSEPH back.
[2020-01-08 20:07] VITALS: BP 124/75
--- NOTE | 2020-01-08 22:59 | NUR ---
Care of patient assumed at 1915. Patient is sitting in day room watching TV. Calm and pleasant on approach. Denies any needs or concerns. BS active x4. HS reg, LS clear but diminished. After HS meds are administered, patient approaches this nurse and requests that additional sleeping aids be ordered as he cannot sleep. 20 minutes later patient is found to be sleeping.
--- NOTE | 2020-01-09 01:33 | NUR ---
Patient up at 0058. Asked patient if he would like his Diclofenac ointment for pain. Patient declined and asked if he could refuse it. Patient denied pain. Patient then approached the nurses station around 0120 requesting PRN Tylenol. Patient then reported that he had generalized pain rated 5/10. Tylenol administered. Education provided regarding scheduled Diclofenac in assisting reducing his pain. Patient continues to refuse ointment.
[2020-01-09 07:15] VITALS: BP 127/83
[2020-01-09 08:00] VITALS: BP 127/83
--- NOTE | 2020-01-09 08:00 | NUR ---
PT EATING BREAKFAST THIS AM. PT STATED HE DIDN'T LIKE THE CREAM FOR PAIN BECAUSE WHEN HE GETS OUT OF HERE HE CAN'T GET OVER THE COUNTER AND TYLENOL HE CAN. PT STATED HE HAS PAIN EVERYWHERE OF 7 ON 1-10 SCALE. PT RECIEVED TYLENOL EARLY THIS AM.
--- NOTE | 2020-01-09 09:01 | NUR ---
ADM TYLENOL 325MG 2 TABS FOR PAIN OF 7 ON 1-10 SCALE FOR GENERALIZED PAIN.
[2020-01-09 09:02] LABS: HEMATOCRIT 42.3 % (42.0-52.0); HEMOGLOBIN 14.6 gm/dL (14.0-18.0); MCH 31.7 pg (26.0-34.0); MCHC 34.5 g/dL (28.0-37.0); MCV 92.1 fL (80.0-100.0); RBC 4.59 mil/uL (4.50-6.00); RDW 13.3 % (10.5-14.5); WBC 3.6 thou/uL (4.0-11.0)
[2020-01-09 09:09] LABS: CREATININE 1.3 mg/dL (0.7-1.3); POTASSIUM 3.8 mmol/L (3.5-5.1)
--- NOTE | 2020-01-09 17:30 | NUR ---
PT HAD A GOOD DAY TODAY. PT HAS TAKEN MEDICATION WITHOUT ANY ISSUES. PT UNDERSTANDS ABOUT WHAT MEDS HE CAN TAKE OVER THE COUNTER WHEN HE DISCHARGES. PT ABLE TO FOLLOW DIRECTIONS AND NO BEHAVIORS.
--- NOTE | 2020-01-09 18:27 | NUR ---
ADM TYLENOL 325MG 2 TABS. FOR GENERALIZED PAIN OF 6 ON 1-10 SCALE.
--- NOTE | 2020-01-09 19:18 | NUR ---
Care of patient assumed at 1915. Patient is lying in bed. Calm and cooperative with assessment. States he is a little depressed that it is taking so ling to find placement for him. Talks about the possibility of being placed at a [facility] center. Denies SI/HI, hallucinations, and delusions. Reports pain as 3/10 after recieving APAP at 1827. Denies any needs at this time. Compliant with HS meds (Trazodone). Sleeping 25 minutes later.
[2020-01-09 19:30] VITALS: BP 118/68
[2020-01-10 07:42] VITALS: BP 125/79
--- NOTE | 2020-01-10 12:41 | NUR ---
Spent most of AM in room. States R neck is hurting d/t sleeping on it wrong. States Dr. White said he would put in an order for a muscle relaxant but it would take an hour. Tylenol given for pain. Alert and orientated X4. Calm and cooperative, independent with cares. Denies SI/HI. Breath sounds clear. Reg HR auscultated. Color pink with brisk capillary refill and palpable peripheral pulses. No edema noted. Independent with voiding. Active bowel sounds over soft, flat abdomen. Ambulates with regular steady gait. No visible s/o distress. 1230 After several requests from pt, Dr. White paged r/t muscle relaxant. States he will put in order for flexiril in approximately 10 min.
[2020-01-10 18:24] VITALS: BP 106/60
[2020-01-10 19:38] VITALS: BP 109/64
--- NOTE | 2020-01-10 21:39 | NUR ---
Care of patient assumed at 1915. Patient is sleeping when this nurse goes to orient him to staff. Patient awakns per self at 1999. Compliant with meds. Reports that his neck is still bothering him from sleeping in an odd position last night. Says that none of the interventions tried have worked. Had received Vicodin shortly before 1900. Says it only made him go to sleep. Has been isolating in his room throughout the day, resting so as not to agravate his neck.
--- NOTE | 2020-01-11 06:59 | NUR ---
Rounds were completed this AM. Nurse observed several packets of salt, sugar, pepper, butter containers. Some were empty, spilled on counters, packed into pockets in his room. Trash was thrown away. Nurse also discovered 4 pencils in his room. 2 of which were broken and sharp. These were thrown away. Patient upset with nurse due to invading his personal space. Nurse education patient on keeping areas clean and that environmental rounds are completed every shift to keep unit clean. Patient remains agitated and frustrated with this nurse.
[2020-01-11 07:47] VITALS: BP 117/81
[2020-01-11 09:32] VITALS: BP 117/81
--- NOTE | 2020-01-11 10:55 | NUR ---
1045 RESUMMED CARE FROM OVERNIGHT SHIFT THIS AM, PATIENT UP IN DAY ROOM TALKING WITH OTHER PATIENTS. PATIENT ATE BREAKFAST TOOK MEDICATION WITHOUT INCIDENCE. PATIENT DENIES SI/HI/AH/VH AT PRESENT, PATIENTS ABDOMEN SOFT ROUND. PATIENTS BOWEL SOUNDS PRESENT IN 4 QUADRANTS, LUNGS CLEAR PATIENT ORIENTED TIMES 4. PATIENT AFTER BREAKFAST WENT TO ROOM TO TAKE A NAP, PATIENT COOPERATIVE CALM. WILL CONTINUE TO MONITOR PATIENT FOR BEHAVIORS AND SAFETY.
[2020-01-11 19:41] VITALS: BP 99/52
--- NOTE | 2020-01-11 20:59 | NUR ---
ASSUMED CARE ON 01/12/20 @ 19:15, COOPERATED WITH ASSESSMENT, MEET, SPOKE ABOUT CAREER BEFORE [facility]. 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 REPORTS PAIN IN NECK. A&OX4.
[2020-01-12 00:29] VITALS: BP 99/52
--- NOTE | 2020-01-12 05:57 | NUR ---
SLEPT WELL OVERNIGHT, WITH 8.2 HOURS OF SLEEP OVERNIGHT.
[2020-01-12 07:32] VITALS: BP 93/48
--- NOTE | 2020-01-12 10:21 | NUR ---
Alert and orientated X4. States he feels great this morning and was able to sleep well. No s/o distress. Denies SI/HI. No mention of pain/discomfort. Up ambulating with regular, steady gait. Looking out for peers, got up to intervene when 2 peers started arguing. Breath sounds clear t/o. Regular HR auscultated. Color pink with brisk capillary refill and palpable peripheral pulses. No edema noted. Independent with voiding. Active bowel sounds over soft, flat abdomen. States he had a BM yesterday. Participating in group, now resting in bed without s/o distress.
--- NOTE | 2020-01-12 12:30 | NUR ---
SW sent referal to the following [facility] arteaga Sw will continue to follow up
[2020-01-12 12:52] VITALS: BP 133/67
--- NOTE | 2020-01-12 15:45 | NUR ---
RT Progress Note- Bob has made friends with select male peers in milieu. He has participated in most morning exercise groups, though participation is variable in the afternoon as he prefers to nap. Patient has not displayed any bizzare behaviors while participating.
[2020-01-12 19:32] VITALS: BP 103/62
--- NOTE | 2020-01-12 23:33 | NUR ---
ASSUMED CARE ON 01/12/20 @ 19:15, AMBULATING IN THE HALLS WITH A STEADY GAIT. NOT WEARING PANTS, HAS A BLANKET WRAPPED AROUND HIS WAIST. COOPERATED WITH ASSESSMENT. C/O NECK PAIN, WARM WASHCLOTH IN A PLASTIC BAG INSERTED INTO A PILLOW CASE PROVIDED X2. RATES PAIN A 7/10, HYDROCODONE 5 MG PROVIDED FOR PAIN AND CYCLOBENZAPINE 5MG PROVIDED FOR MUSCLE SPASMS. @ 2200, TRAZADONE 50 PROVIDED FOR INSOMNIA AND DICLOFEN SULFATE PROVIDED FOR NECK MUSCLE DISCOMFORT. LYING IN BED AT THIS WRITING, EYES CLOSED, RESPIRATIONS EVEN AND UNLABORED.
[2020-01-12 23:39] VITALS: BP 103/62
--- NOTE | 2020-01-13 06:08 | NUR ---
SLEPT 7.2 HOURS OVERNIGHT
--- NOTE | 2020-01-13 10:41 | NUR ---
Nutrition followup: Pt admit to [facility] unit with schizophrenia, psychosis. Continues to eat very well 100% of meals/snacks and ensure daily. Pt with previous request for double portions of entree items which he generally receives. Reinforce order with foodservice staff. Pt voices the meals are the only thing he looks forward to on unit. Will add additional food preferences/[employer] salads BID and ensure on all trays. Weight up 1# from prior assessment, 3# total from admit weight. Temporal muscle wasting is visible and likely weight loss prior to admit due to pt comments of inadequate diet in past althought pt is unaware of usual weight. Due to extremely high appetite/intake, follow once/week.
[2020-01-13 11:43] VITALS: BP 103/47
--- NOTE | 2020-01-13 13:04 | NUR ---
Lying supine in bed. States he feels good this AM, neck pain is a 2/10. Alert and orientated X 4. Focused on being calm and being transferred. Denies SI/HI. Reg, steady gait when up ambulating. Breath sounds clear t/o. Reg HR auscultated. Color pink with brisk capillary refill and palpable peripheral pulses. No edema noted. Active bowel sounds over soft, flat abdomen. States last BM was last night. Independent with voiding. Conversing with peers and staff. No s/o distress. SW states he will be discharged tomorrow.
--- NOTE | 2020-01-13 14:35 | NUR ---
JOSEPH contacted [facility] and talked with Scooby about pt. He wanted to do a phone interview so JOSEPH brought pt into her office. After the interview Scooby said he can take pt tomorrow 1300. He asked that JOSEPH arrange transportation. JOSEPH contacted César [facility] and provided an update. César okayed pt to go to this facility. JOSEPH arranged transportation for pt for 01/13 @1300 trip #[id number]. JOSEPH team will continue to follow pt during his stay on this unit.
[2020-01-13 19:44] VITALS: BP 126/83
--- NOTE | 2020-01-14 02:21 | NUR ---
Assumed care of patient at change of shift. Pt. was in his room laying in bed on his side. He was cooperative with assessment. Pt. is alert and oriented x 4 and correctly states details regarding his D/C tomorrow to [place]. Physical assessment with no gross abnormalities with details as charted in PI. He denies SI/HI/AV/VH and states that he is happy to be leaving tomorrow. He requested and was given Trazadone PRN at bedtime and then requested 2nd dose. He denies pain and no signs or symptoms of pain or distress is noted. He does not request pain medication. PAINAD =0.
--- NOTE | 2020-01-14 04:37 | NUR ---
Pt. asked for and received Hydrocodone w/acetaminphen for c/o right neck pain rated at 6/10.
[2020-01-14 04:55] VITALS: BP 126/83
[2020-01-14 07:45] VITALS: BP 100/70
--- NOTE | 2020-01-14 10:41 | NUR ---
Assumed care 0700. Believed to be compliant with medication. Shortly after he took his medication he went into the bathroom and flushed his toilet stating he was flushing a paper towel down the toilet. He stated he took his medication, that he needs it. He has poor judgment--was found in the other bed than the one he was assigned to. He was informed not to flush paper towels down the toilet-to put them in the wastebasket/paper sack. He is OK with going to the [facility].
[2020-01-14] MEDS ORDERED: TRAZODONE HCL50 MG PO (12:04)
[2020-01-14] MEDS ORDERED: HALOPERIDOL 5 MG5 MG PO (12:05)
[2020-01-14] MEDS ORDERED: VOLTAREN GEL 1100 G1 TOP (12:11)
--- NOTE | 2020-01-14 12:59 | NUR ---
JOSEPH D/C note SW faxed pt's discharge docs to [facility]. No other needs for JOSEPH team to address at this time.
--- NOTE | 2020-01-14 13:23 | NUR ---
Patient discharged to [facility] with belongings, cell phone, and papers. Per Psychiatrist and Hospitalist was sent out with the topicals. He had no complaints. No SI/HI/AH/VH. He was taught about being careful of behaviors that might be against the rules in his new place--to ask if there was any question. Mood/affect pleasant/euthymic. No delusional verbalizations.
--- NOTE | 2020-01-14 22:14 | D ---
[facility] [place] [address] DISCHARGE SUMMARY Name: SARAHI LOBATO Room #: 526A-A [facility] IN M.R.#: [id number] Admission: 12/29/19 Attend Phys: Jacques Skelton DO Discharge: 01/14/20 Date of : 59 Report #: [id number] THIS REPORT FOR: cc: MARTHA - No family physician/PCP FAM - No family physician/PCP Jacques Skelton DO ~ THIS REPORT FOR: //name// CC: Jacques THOMAS physician/PCP DATE OF SERVICE: 01/14/2020 INPATIENT PSYCHIATRIC DISCHARGE SUMMARY ATTENDING PSYCHIATRIST: Jacques Skelton DO. ORTHOPEDIC PHYSICIAN: Yoandy Ramirez MD, at the time of discharge. DISCHARGE DIAGNOSIS: Schizophrenia. MEDICAL COMORBIDITIES: Include dehydration, improving, muscle spasm, on Flexeril p.r.n., hydrocodone p.r.n. DISCHARGE PLAN: Discharging to [facility]. DIET: Regular. ACTIVITY LEVEL: As tolerated. No alcohol, no illicit drugs. The patient lacks capacity to make healthcare living decisions due to poor judgment, disorganization of his schizophrenia. DISCHARGE MEDICATIONS: Haloperidol 12.5 mg p.o. q.12 hours for schizophrenia, trazodone 50 mg p.o. at bedtime, may repeat x 1 for insomnia. His other scheduled med is diclofenac 2 g topical 4 times a day to affected joints. The patient's brother is his durable power of environmental attorney for healthcare, which is now inactive. The patient's psychiatric and medical care will be provided by the receiving facility. He should see a psychiatrist within 1 month, antipsychotic laboratories every 6 months including fasting lipids, CBC, CMP recommended. He has no dyskinetic movements at the time of discharge. REASON FOR ADMISSION: Back on 12/29/2019 is as follows: A 64-year-old male, readmitted through the Emergency Room. Apparently, ____ as he was "outside of the home," brought there to remove the corpses and clear the [facility] [address] [place] [address] DISCHARGE SUMMARY Name: CHERYLESARAHI JULIENNE Room #: 526A-A [facility] IN M.R.#: [id number] Admission: 12/29/19 Attend Phys: Jacques Skelton DO Discharge: 01/14/20 Date of : 59 Report #: [id number] hoarders out. He was making nonsensical statements at time of admission such that his house is a nightmare, there are children tied up with duct tape. HOSPITAL COURSE: The patient was admitted to Geriatric Psychiatry Unit. We had recently had him for prior admission and the patient failed to be able to care for himself, left to his own devices. During this admission, I went with the haloperidol instead of an atypical antipsychotic, this was titrated to ____ mg twice a day, total of 25 mg daily. The patient did not want any injectable antipsychotics. Earlier in the admission, he made his brother DPOA, which subsequently was enacted by myself. The patient at this point will need 24-hour assistance and supervision with things like med management due to poor compliance. On the day of discharge, he was not suicidal or homicidal, felt to be in stable condition to step down. PERTINENT LABORATORY DATA: This admission, most recent CBC on 01/09/2020, white count 3.6, H and H 14.6 and 42.3, platelet count 219. Chemistries: Sodium 137, potassium 3.8, chloride 103, BUN 22, creatinine 1.3, estimated GFR 56, glucose 85, calcium 9.0 on 01/09/2020. Urine drug screen was negative including alcohol as well as marijuana. Urinalysis showed trace ketones and blood, otherwise negative. No imaging this admission. PHYSICAL EXAMINATION: VITAL SIGNS: At time of discharge, temperature 36.8, pulse 60, respirations 16, BP 100/70, O2 sat 98%. MUSCULOSKELETAL: Normal gait and station. MENTAL STATUS EXAMINATION: This is a well-developed, well-nourished, tall male with a goatee, appearing stated age. Attention fair. Concentration limited. Speech is normal in rate, volume and tone. Thought process is linear and goal directed. Thought content focused on discharge. No psychomotor agitation. No psychomotor retardation. Denied suicidal ideation or homicidal ideation. Denied auditory, visual, or tactile hallucinations. Mood and affect were congruent and euthymic, fair range. Future oriented. Insight limited. Judgment limited. Fund of knowledge below average. PROGNOSIS: For this patient is guarded, will depend on if he stays living in a supervised environment, gets compliant with psychiatric medication, receives ongoing medical care. His brother functioning as his DPOA whose name is César Lobato, would be grateful and helpful in this and I should add guardianship was avoided this admission for his brother stepping up to function as his DPOA. <ELECTRONICALLY SIGNED> By: Jacques Skelton DO 01/14/202213 01 21 Jacques Skelton DO /nt
== END 2020-01-14 13:10 | DRG 885 ==
LOC: ER 03:45 → SBH 08:37 → EROBS 08:37 → SBH 08:37
PROVIDERS: Emergency Medicine; Hospitalist; Internal Medicine; ADMIT Psychiatry & Neurology Psychiatry
DX: F20.9 Schizophrenia, unspecified (principal); F29 Unspecified psychosis not due to a substance or known physiological condition; R73.9 Hyperglycemia, unspecified; F01.50 Vascular dementia, unspecified severity, without behavioral disturbance, psychotic disturbance, mood disturbance, and anxiety; E86.0 Dehydration; N19 Unspecified kidney failure; M62.838 Other muscle spasm; Z79.899 Other long term (current) drug therapy; Z88.0 Allergy status to penicillin; Z88.2 Allergy status to sulfonamides; Z91.14 Patient's other noncompliance with medication regimen; Z59.0 Homelessness
CPT/HCPCS: 10880

== ENCOUNTER 2021-08-29 01:29 | Emergency (ER) | payer OTHER ==
[~2021-08-29] VITALS: Ht 188 cm; Wt 79.4 kg
--- NOTE | ~2021-08-29 | EMS ---
[address] [address] EMS Patient Care Report Name: SARAHI LOBATO Room #: DEP [facility]#: [id number] Admission: 08/29/21 Attend Phys: Discharge: 08/29/21 Date of : 59 Report #: [id number] THIS REPORT FOR: //name// Report Transmitted: 09/02/2021 12:54 EMS Care Summary [place], [place]/[facility] Incident [id number] @ 08/29/2021 01:07 Incident Location [address] [place] [address] Patient SARAHI LOBATO Male, 66 Years 1955 Patient Address homeless Patient History None Reported, Patient Allergies No known allergies, Patient Medications None Reported, Chief Complaint cold exposure Disposition Transported No Lights/[place] Dispatch Reason Heat/Cold Exposure Transported To [place] [address] dispatched to cold exposure. O/A M29 found male at bus stop. Pt reported he was cold and wanted to go to [place]. Pt transported to [place]. [facility] in service. Initial Vitals [address] [address] EMS Patient Care Report Name: SARAHI LOBATO Room #: DEP ER [facility]#: [id number] Admission: 08/29/21 Attend Phys: Discharge: 08/29/21 Date of : 59 Report #: [id number] @01:20P: 94,R: 18,BP: 140/80,Pain: 0/10,GCS: 15,SpO2: 58,Revised Trauma: 12, @01:15P: 76,R: 18,BP: 150/77,Pain: 0/10,GCS: 15,CO: 1,SpO2: 99,Revised Trauma: 12, Assessments @01:17MENTAL:No Abnormalities,SKIN:No Abnormalities,HEENT:Head/Face: No Abnormalities,Eyes: No Abnormalities,Neck/Airway: No Abnormalities,LUNG SOUNDS:General: No Abnormalities,Left Upper: No Abnormalities,Right Upper: No Abnormalities,Left Lower: No Abnormalities,Right Lower: No Abnormalities,ABDOMEN:General: No Abnormalities,Left Upper: No Abnormalities,Right Upper: No Abnormalities,Left Lower: No Abnormalities,Right Lower: No Abnormalities,PELVIS//GI:No Abnormalities,EXTREMITIES:Left Arm: No Abnormalities,Right Arm: No Abnormalities,Left Leg: No Abnormalities,Right Leg: No Abnormalities,PULSE:NEURO:No Abnormalities,@01:17MENTAL:No Abnormalities,SKIN:No Abnormalities,HEENT:Head/Face: No Abnormalities,Eyes: No Abnormalities,Neck/Airway: No Abnormalities,LUNG SOUNDS:General: No Abnormalities,Left Upper: No Abnormalities,Right Upper: No Abnormalities,Left Lower: No Abnormalities,Right Lower: No Abnormalities,ABDOMEN:General: No Abnormalities,Left Upper: No Abnormalities,Right Upper: No Abnormalities,Left Lower: No Abnormalities,Right Lower: No Abnormalities,PELVIS//GI:No Abnormalities,EXTREMITIES:Left Arm: No Abnormalities,Right Arm: No Abnormalities,Left Leg: No Abnormalities,Right Leg: No Abnormalities,PULSE:NEURO:No Abnormalities, Impression Generalized Weakness Timeline 01:05,Call Received 01:05,Dispatch Notified 01:07,Dispatched 01:07,En Route 01:13,On Scene 01:14,At Patient 01:14,Depart Scene 01:15,BP: 150/77 M,PULSE: 76,RR: 18 R,SPO2: 99 Ox,ETCO2: ,BG: ,PAIN: 0,GCS: 15, 01:20,BP: 140/80 M,PULSE: 94,RR: 18 R,SPO2: 58 Ox,ETCO2: ,BG: ,PAIN: 0,GCS: 15, 01:27,At Destination 01:41,Call Closed Disclaimer v1.1 Copyright 2021 [employer] This EMS Care Summary contains data elements from the applicable legal record (which may be displayed differently). It is designed to provide pertinent information for the following purposes: continuity of care, clinical quality, [address] [address] EMS Patient Care Report Name: CHERYLESARAHI JULIENNE Room #: DEP [facility]#: [id number] Admission: 08/29/21 Attend Phys: Discharge: 08/29/21 Date of : 59 Report #: [id number] and state data reporting. The complete legal record is available to ED staff and administrators of the receiving hospital in [employer] Patient Tracker. All data is provided "as is."
[~2021-08-29 01:29] MED LIST changes: +HALOPERIDOL 5 MG5 MG PO; +TRAZODONE HCL50 MG PO; +VOLTAREN GEL 1100 G1 TOP
[2021-08-29 01:30] VITALS: BP 141/95
== END 2021-08-29 03:27 | disposition home or self-care (01) ==
LOC: ER 01:29
DX: T33.532A Superficial frostbite of left finger(s), initial encounter (principal); T33.531A Superficial frostbite of right finger(s), initial encounter; T33.832A Superficial frostbite of left toe(s), initial encounter; T33.831A Superficial frostbite of right toe(s), initial encounter; Z79.899 Other long term (current) drug therapy; Z88.2 Allergy status to sulfonamides; Z88.0 Allergy status to penicillin; Z91.041 Radiographic dye allergy status; X58.XXXA Exposure to other specified factors, initial encounter; Y93.89 Activity, other specified; Y92.89 Other specified places as the place of occurrence of the external cause; Y99.9 Unspecified external cause status